=== PATIENT | male | born 1960 | race Caucasian/White ===

== ENCOUNTER 2018-08-10 15:31 | Emergency (ER) | payer MEDICAID ==
[~2018-08-10] VITALS: Ht 185.4 cm; Wt 99.8 kg
[2018-08-10 15:31] VITALS: BP_SYST 125
[2018-08-10] MEDS ORDERED: chlorproMAZINE HCL 50 MG/ 2 ML AMP IVP ONE (16:00)
[2018-08-10] MEDS ORDERED: DIPHENHYDRAMINE INJ 50 MG/ML VIAL IVP ONE (16:00)
[2018-08-10] MEDS ORDERED: NACL 0.9% 1,000 ML IV ONE (16:00)
[2018-08-10 16:12] LABS: BILIRUBIN,URINE NEGATIVE (NEGATIVE); BLOOD, URINE 1+ (NEGATIVE); CLARITY/URINE CLEAR (CLEAR); GLUCOSE,URINE NEGATIVE (NEGATIVE); KETONES,URINE NEGATIVE (NEGATIVE); LEUKOCYTE ESTERASE ,URINE NEGATIVE (NEGATIVE); NITRITE, URINE NEGATIVE (NEGATIVE); PROTEIN URINE 2+ (NEGATIVE)
[2018-08-10 16:19] LABS: BASOPHILS % (AUTO) 0.3 % (0.0-2.0); EOSINOPHILS % (AUTO) 0.2 % (0.0-4.0); HEMATOCRIT 41.8 % (36-54); HEMOGLOBIN 14.3 g/dL (14.0-18.0); LYMPHOCYTES # (AUTO) 1.2 K/uL (1.0-5.5); LYMPHOCYTES % (AUTO) 12.6 % (20.5-51.5); MEAN CORPUSCULAR HEMOGLOBIN 30 pg (27-31); MEAN CORPUSCULAR HGB CONC 34 % (32-36); MEAN CORPUSCULAR VOLUME 88 fL (79.0-98.0); MONOCYTES # (AUTO) 0.7 K/uL (0.0-1.0); NEUTROPHILS # (AUTO) 7.4 K/uL (1.8-7.7); NEUTROPHILS % (AUTO) 79.9 % (40.0-70.0); PLATELET COUNT (AUTO) 261 K/uL (130-430); RED BLOOD CELL COUNT(AUTO) 4.78 MIL/uL (4.2-6.2); RED CELL DISTRIBUTION WIDTH 12.7 % (9.0-15.0); WHITE BLOOD COUNT (AUTO) 9.3 K/uL (4.8-10.8)
[2018-08-10 16:24] LABS: CALCIUM 9.1 mg/dL (8.4-11.0); CREATININE 1.06 mg/dL (0.55-1.30)
[2018-08-10 16:24] LABS: COLOR,URINE AMBER (YELLOW); UROBILINOGEN,URINE >=8 (0.2-1.0)
[2018-08-10 16:25] LABS: BACTERIA,URINE FEW /HPF (None Seen); MUCUS,URINE None Seen /LPF (None Seen); RBC,URINE 0-3 /HPF (0-3); WBC,URINE NONE SEEN /HPF (0-3)
[2018-08-10 16:29] LABS: TOTAL BILIRUBIN 0.6 mg/dL (0.0-1.0)
[2018-08-10] MEDS ORDERED: AZITHROMYCIN 250 MG TABLET PO ONE (18:00)
[2018-08-10 18:14] VITALS: BP_SYST 132
== END 2018-08-10 18:18 | disposition home or self-care (01) ==
LOC: SED 15:31
DX: J18.9 Pneumonia, unspecified organism (principal); E87.1 Hypo-osmolality and hyponatremia; R74.0 Nonspecific elevation of levels of transaminase and lactic acid dehydrogenase [LDH]; R03.0 Elevated blood-pressure reading, without diagnosis of hypertension
CPT/HCPCS: 36415; 71045; 74176; 80053; 81000; 83690; 84484; 85025; 86710; 93005; 96361; 96374; 96375; 99284; J1200; J3230; J7030; Q0144

== ENCOUNTER 2019-04-14 22:10 | Emergency (ER) | payer MEDICAID ==
[~2019-04-14] VITALS: Ht 182.9 cm; Wt 102.1 kg
--- NOTE | 2019-04-14 22:30 | NUR ---
Patient to ER bed 03 to gown for evaluation. Side rails up. Report given to MILAGRO John.
--- NOTE | 2019-04-14 22:31 | NUR ---
ER MD Decker at bedside for medical evaluation.
--- NOTE | 2019-04-14 22:32 | NUR ---
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 Patient reports pain when coughing and with breathing. Pain 9/10. Denies any abdminal pain, shortness of breath, nausea, vomiting or diarrhea. No other complaints/injuries per patient or as noted. Will continue to monitor.
[2019-04-14 22:36] VITALS: BP_SYST 140
--- NOTE | 2019-04-14 22:45 | NUR ---
# 18 gauge angiocath placed to rac. Use of asceptic technique. Opsite placed over site. Blood return noted. Blood for lab drawn from site. Flushed with 10 cc of normal saline. No evidence of infiltration noted. Patient tolerated well.
[2019-04-14 22:59] LABS: BILIRUBIN,URINE NEGATIVE (NEGATIVE); BLOOD, URINE NEGATIVE (NEGATIVE); CLARITY/URINE CLEAR (CLEAR); COLOR,URINE YELLOW (YELLOW); GLUCOSE,URINE NEGATIVE (NEGATIVE); KETONES,URINE NEGATIVE (NEGATIVE); LEUKOCYTE ESTERASE ,URINE NEGATIVE (NEGATIVE); NITRITE, URINE NEGATIVE (NEGATIVE); PH,URINE 6.5 (5.0-8.0); PROTEIN URINE NEGATIVE (NEGATIVE); UROBILINOGEN,URINE 0.2 (0.2-1.0)
[2019-04-14] MEDS: NACL 0.9% 1,000 ML IV ONE (23:08)
[2019-04-14] MEDS: MORPHINE 4 MG/ML INJ. SYRINGE IVP ONE (23:08)
[2019-04-14 23:12] LABS: BASOPHILS # (AUTO) 0.1 K/uL (0.0-0.2); BASOPHILS % (AUTO) 0.8 % (0.0-2.0); EOSINOPHILS # (AUTO) 0.3 K/uL (0.0-0.4); EOSINOPHILS % (AUTO) 4.5 % (0.0-4.0); HEMATOCRIT 38.7 % (36-54); HEMOGLOBIN 13.9 g/dL (14.0-18.0); LYMPHOCYTES # (AUTO) 2.1 K/uL (1.0-5.5); LYMPHOCYTES % (AUTO) 30.4 % (20.5-51.5); MEAN CORPUSCULAR HEMOGLOBIN 32 pg (27-31); MEAN CORPUSCULAR HGB CONC 36 % (32-36); MEAN CORPUSCULAR VOLUME 89 fL (79.0-98.0); MONOCYTES # (AUTO) 0.5 K/uL (0.0-1.0); MONOCYTES % (AUTO) 7.2 % (1.7-9.3); NEUTROPHILS # (AUTO) 3.9 K/uL (1.8-7.7); NEUTROPHILS % (AUTO) 57.1 % (40.0-70.0); PLATELET COUNT (AUTO) 247 K/uL (130-430); RED BLOOD CELL COUNT(AUTO) 4.35 MIL/uL (4.2-6.2); RED CELL DISTRIBUTION WIDTH 13.8 % (9.0-15.0); WHITE BLOOD COUNT (AUTO) 6.9 K/uL (4.8-10.8)
[2019-04-14 23:34] LABS: INR 0.9 (0.80-1.20)
[2019-04-15 00:08] LABS: CALCIUM 8.1 mg/dL (8.4-11.0); CREATININE 1.05 mg/dL (0.55-1.30)
[2019-04-15 00:12] LABS: ALBUMIN 3.6 g/dL (3.4-4.8); TOTAL BILIRUBIN 0.3 mg/dL (0.0-1.0)
[2019-04-15 00:53] VITALS: BP_SYST 128
--- NOTE | 2019-04-15 00:53 | NUR ---
Patient given written and verbal discharge instructions and verbalizes understanding. ER MD Decker discussed with patient the results and treatment provided. Patient in stable condition. ID arm band removed. IV catheter removed intact and dressing applied, no active bleeding. Rx of tylenol no. 3 and zofran given. Patient educated on pain management and to follow up with PMD. Pain Scale 0/10 Opportunity for questions provided and answered. Medication side effect fact sheet provided.
== END 2019-04-15 00:53 | disposition home or self-care (01) ==
LOC: SED 22:10
DX: S22.31XA Fracture of one rib, right side, initial encounter for closed fracture (principal); S20.211A Contusion of right front wall of thorax, initial encounter; R03.0 Elevated blood-pressure reading, without diagnosis of hypertension; W22.8XXA Striking against or struck by other objects, initial encounter; Y93.89 Activity, other specified; Y92.69 Other specified industrial and construction area as the place of occurrence of the external cause; Y99.8 Other external cause status
CPT/HCPCS: 36415; 71250; 80053; 81003; 82150; 82550; 83605; 83690; 83880; 84484; 85025; 85610; 85730; 87040; 93005; 99284; J2270; J7030

== ENCOUNTER 2019-04-21 22:45 | Emergency (ER) | payer MEDICAID ==
[~2019-04-21] VITALS: Ht 182.9 cm; Wt 102.1 kg
[2019-04-21 22:56] VITALS: BP_SYST 148
--- NOTE | 2019-04-21 23:01 | NUR ---
Patient triaged and placed in waiting room. VSS and patient appears in no acute distress at this time. Accompanied by self, awaiting available bed, and MD notified of need for MSE.
--- NOTE | 2019-04-21 23:32 | NUR ---
Patient to ER bed 2 to gown for evaluation. Side rails up.
[2019-04-21 23:38] LABS: BILIRUBIN,URINE NEGATIVE (NEGATIVE); BLOOD, URINE NEGATIVE (NEGATIVE); CLARITY/URINE CLEAR (CLEAR); COLOR,URINE YELLOW (YELLOW); GLUCOSE,URINE NEGATIVE (NEGATIVE); KETONES,URINE NEGATIVE (NEGATIVE); LEUKOCYTE ESTERASE ,URINE NEGATIVE (NEGATIVE); NITRITE, URINE NEGATIVE (NEGATIVE); PROTEIN URINE TRACE (NEGATIVE)
--- NOTE | 2019-04-21 23:40 | NUR ---
Pt complains of RUQ pain for the past 4 days. Pt states he has certain spot that has a burning sensation especially when he stretches or when he coughs. Per pt, he fractured his ribs a week ago and to help stabilize rib he uses a brace. Per pt, when brace is on, abdomen feels better, but when brace comes off, that's when he starts to feel pain to abdomen. Pt felt nauseous but denies vomiting. No other injuries/complaints per patient or noted.
[2019-04-21 23:41] LABS: RBC,URINE 0-3 /HPF (0-3); WBC,URINE 0-3 /HPF (0-3)
[2019-04-21 23:42] LABS: BACTERIA,URINE RARE /HPF (None Seen)
--- NOTE | 2019-04-21 23:46 | NUR ---
ER Dr. Navarrete at bedside examining patient.
[2019-04-22] MEDS ORDERED: CYCLOBENZAPRINE HCL 10 MG TABLET (FLEXERIL) PO ONE
[2019-04-22] MEDS ORDERED: KETOROLAC TROMETHAMINE 60 MG/2 ML VIAL IM ONE
[2019-04-22 00:01] LABS: BASOPHILS # (AUTO) 0.1 K/uL (0.0-0.2); BASOPHILS % (AUTO) 1.6 % (0.0-2.0); EOSINOPHILS # (AUTO) 0.4 K/uL (0.0-0.4); EOSINOPHILS % (AUTO) 5.9 % (0.0-4.0); HEMATOCRIT 37.2 % (36-54); HEMOGLOBIN 12.9 g/dL (14.0-18.0); LYMPHOCYTES # (AUTO) 2.4 K/uL (1.0-5.5); LYMPHOCYTES % (AUTO) 37.9 % (20.5-51.5); MEAN CORPUSCULAR HEMOGLOBIN 31 pg (27-31); MEAN CORPUSCULAR HGB CONC 35 % (32-36); MEAN CORPUSCULAR VOLUME 88 fL (79.0-98.0); MONOCYTES # (AUTO) 0.6 K/uL (0.0-1.0); MONOCYTES % (AUTO) 9.2 % (1.7-9.3); NEUTROPHILS # (AUTO) 2.9 K/uL (1.8-7.7); NEUTROPHILS % (AUTO) 45.4 % (40.0-70.0); PLATELET COUNT (AUTO) 266 K/uL (130-430); RED BLOOD CELL COUNT(AUTO) 4.21 MIL/uL (4.2-6.2); RED CELL DISTRIBUTION WIDTH 13.6 % (9.0-15.0); WHITE BLOOD COUNT (AUTO) 6.4 K/uL (4.8-10.8)
[2019-04-22 00:30] LABS: CALCIUM 8.4 mg/dL (8.4-11.0); CREATININE 1.05 mg/dL (0.55-1.30); POTASSIUM 3.8 mmol/L (3.5-5.1)
[2019-04-22 00:37] LABS: ALBUMIN 3.5 g/dL (3.4-4.8); TOTAL BILIRUBIN 0.3 mg/dL (0.0-1.0)
[2019-04-22 02:08] VITALS: BP_SYST 136
--- NOTE | 2019-04-22 02:08 | NUR ---
Patient given written and verbal discharge instructions and verbalizes understanding. ER MD discussed with patient the results and treatment provided. Patient in stable condition. ID arm band removed. Rx of Ibuprofen and Flexeril given. Patient educated on pain management and to follow up with PMD. Pain Scale 0. Opportunity for questions provided and answered. Medication side effect fact sheet provided.
== END 2019-04-22 02:08 | disposition home or self-care (01) ==
LOC: SED 22:45
DX: S30.1XXA Contusion of abdominal wall, initial encounter (principal); X58.XXXA Exposure to other specified factors, initial encounter; Y93.89 Activity, other specified; Y92.89 Other specified places as the place of occurrence of the external cause; Y99.8 Other external cause status
CPT/HCPCS: 36415; 80053; 81000; 83690; 85025; 96372; 99283; J1885

== ENCOUNTER 2020-04-21 11:18 | Emergency (ER) | payer MEDICAID ==
[~2020-04-21] VITALS: Ht 185.4 cm; Wt 99.8 kg
[2020-04-21 11:24] VITALS: BP_SYST 139
[2020-04-21 12:05] VITALS: BP_SYST 139
== END 2020-04-21 12:04 | disposition home or self-care (01) ==
LOC: SED 11:18
DX: M77.9 Enthesopathy, unspecified (principal)
CPT/HCPCS: 99283

== ENCOUNTER 2021-03-04 11:07 | Emergency (ER) | payer MEDICAID ==
[~2021-03-04] VITALS: Ht 185.4 cm; Wt 102.1 kg
[2021-03-04 11:20] VITALS: BP_SYST 152
--- NOTE | 2021-03-04 11:23 | NUR ---
Patient to ER bed 6 to gown for evaluation. Side rails up. Report given to Jacobo HUMPHREY.
[2021-03-04] MEDS ORDERED: HYDROcodone/ACETAMIN 10-325 MG TAB PO ONE (11:30)
--- NOTE | 2021-03-04 11:30 | NUR ---
Patient came to the ER with complaint of knee pain.
--- NOTE | 2021-03-04 11:31 | NUR ---
Patient came to the ER with complaint of bilateral knee pain. Patient advised that he has arthritis and when putting on socks yesterday and he felt something pop and now his right knee is in more pain. Patient typically lives with discomfort with both knees, but per patient his right knee is 9/10 pain. Patient knee is swollen and tender to touch. Patient is unable to extend or bend knee at joint.
--- NOTE | 2021-03-04 11:35 | NUR ---
ER Dr. Partida at bedside examining patient.
--- NOTE | 2021-03-04 11:40 | NUR ---
Radiology at bedside.
[2021-03-04 11:56] LABS: BASOPHILS % (AUTO) 0.9 % (0.0-2.0); EOSINOPHILS # (AUTO) 0.3 K/uL (0.0-0.4); EOSINOPHILS % (AUTO) 6.2 % (0.0-4.0); HEMATOCRIT 41.5 % (36-54); HEMOGLOBIN 13.6 g/dL (14.0-18.0); LYMPHOCYTES # (AUTO) 1.7 K/uL (1.0-5.5); LYMPHOCYTES % (AUTO) 30.2 % (20.5-51.5); MEAN CORPUSCULAR HEMOGLOBIN 29 pg (27-31); MEAN CORPUSCULAR HGB CONC 33 % (32-36); MEAN CORPUSCULAR VOLUME 89 fL (79.0-98.0); MONOCYTES # (AUTO) 0.6 K/uL (0.0-1.0); MONOCYTES % (AUTO) 9.9 % (1.7-9.3); NEUTROPHILS % (AUTO) 52.8 % (40.0-70.0); PLATELET COUNT (AUTO) 270 K/uL (130-430); RED BLOOD CELL COUNT(AUTO) 4.69 MIL/uL (4.2-6.2); RED CELL DISTRIBUTION WIDTH 13.7 % (9.0-15.0); WHITE BLOOD COUNT (AUTO) 5.6 K/uL (4.8-10.8)
[2021-03-04 12:19] LABS: INR 0.9 (0.80-1.20); PROTHROMBIN TIME 9.3 SECS (9.5-12.5)
--- NOTE | 2021-03-04 12:28 | NUR ---
Ultrasound at bedside to examine right knee for fluid.
[2021-03-04 12:29] LABS: ANION GAP 9 (5-15); CALCIUM 8.7 mg/dL (8.4-11.0); CHLORIDE 108 mmol/L (98-107); CREATININE 0.93 mg/dL (0.55-1.30); GFR AFRICAN AMERICAN 107 mL/min (>90); GLUCOSE 111 mg/dL (70-99); POTASSIUM 4.5 mmol/L (3.5-5.1); SODIUM SERUM 142 mmol/L (136-145); UREA NITROGEN, BLOOD 11 mg/dL (8-21)
[2021-03-04 12:38] LABS: ASPARTATE AMINOTRANSFERASE 14 U/L (10-37); TOTAL BILIRUBIN 0.4 mg/dL (0.0-1.0)
[2021-03-04 12:39] LABS: ALANINE AMINOTRANSFERASE 25 U/L (12-78); ALBUMIN 3.5 g/dL (3.4-4.8); URIC ACID 4.8 mg/dL (2.4-7.0)
[2021-03-04] MEDS ORDERED: LIDOCAINE 1%, 20 ML MDV 20 ML ONE (12:39)
[2021-03-04 12:44] LABS: C-REACTIVE PROTEIN QUANT < 0.2 mg/dL (0-0.5)
[2021-03-04 12:48] LABS: ERYTHROCYTE SEDIMENTATION RATE 9 MM/HR (0-15)
[2021-03-04] MEDS ORDERED: BACITRACIN 1 GM OINT TP ONE (12:57)
--- NOTE | 2021-03-04 13:05 | NUR ---
YARED WRAP TO RT KNEE TOLERATED WELL
[2021-03-04] MEDS ORDERED: IBUP-1971 PO (13:19)
[2021-03-04] MEDS ORDERED: HYDR-3917 PO (13:19)
[2021-03-04 13:30] VITALS: BP_SYST 121
--- NOTE | 2021-03-04 13:30 | NUR ---
Patient given written and verbal discharge instructions and verbalizes understanding. ER MD discussed with patient the results and treatment provided. Patient in stable condition. ID arm band removed. Rx of norco given. Patient educated on pain management and to follow up with PMD. Pain Scale 4/10 Opportunity for questions provided and answered. Medication side effect fact sheet provided.
[2021-03-04 14:01] LABS: APPEARANCE,SPUN,BODY FLUID CLEAR (CLEAR); BF APPEARANCE UNSPUN HAZY (CLEAR); BODY FLUID COLOR RED (LT YELLOW); BODY FLUID SOURCE/ TYPE JOINT; BODY FLUID TOTAL VOLUME 50 mL; MONOCYTES,BODY FLUID 4 %; NEUTROPHIL, BODY FLUID 96 %; RBC, BODY FLUID 3028 /uL; SOURCE/TYPE ,BODY FLUID SYNOVIAL; WBC, BODY FLUID 1370 /uL
[2021-03-04 14:23] LABS: BODY FLUID CRYSTALS NO CRYSTALS SEEN (None Seen)
[2021-03-04 18:48] LABS: BODY FLUID GLUCOSE 107 mg/dL; BODY FLUID TOTAL PROTEIN 2.8 g/dL
== END 2021-03-04 13:30 | disposition home or self-care (01) ==
LOC: SED 11:07
DX: M25.461 Effusion, right knee (principal)
CPT/HCPCS: 20611; 36415; 73560; 76882; 80053; 82947; 84157; 84550; 85025; 85610; 85651; 85730; 86140; 87070; 89051 ×2; 89060; 99285; J2001

== ENCOUNTER 2021-03-05 19:41 | Emergency (ER) | payer MEDICAID ==
[~2021-03-05] VITALS: Ht 177.8 cm; Wt 94.3 kg
[~2021-03-05 19:41] MED LIST: HYDR-3917 PO; IBUP-1971 PO
[2021-03-05 19:56] VITALS: BP_SYST 142
--- NOTE | 2021-03-05 19:56 | NUR ---
Patient to ER bed 7 to gown for evaluation. Side rails up
--- NOTE | 2021-03-05 20:03 | NUR ---
Dr. Morin bedside for pt eval
--- NOTE | 2021-03-05 20:05 | NUR ---
Pt came into ER with complaint of right knee pain 04/04. Pt was in the ER yesterday for the same pain and the DrEdi drained the knee. Pt reports the knee filled up with fluid again and is causing him pain. Pt resting in [facility] no distress noted.
--- NOTE | 2021-03-05 20:38 | NUR ---
Dr. Morin at bedside speaking with pt.
--- NOTE | 2021-03-05 20:46 | NUR ---
Applied right knee imobilizer to pt. Pt tolerated well.
[2021-03-05 20:57] VITALS: BP_SYST 142
--- NOTE | 2021-03-05 20:58 | NUR ---
Patient given written and verbal discharge instructions and verbalizes understanding. ER MD discussed with patient the results and treatment provided. Patient in stable condition. ID arm band removed. Patient educated on pain management and to follow up with PMD. Pain Scale 2/10. Opportunity for questions provided and answered. Medication side effect fact sheet provided.
== END 2021-03-05 20:58 | disposition home or self-care (01) ==
LOC: SED 19:41
DX: M25.461 Effusion, right knee (principal); M17.0 Bilateral primary osteoarthritis of knee; Z79.899 Other long term (current) drug therapy
CPT/HCPCS: 99283

== ENCOUNTER 2022-06-04 13:10 | Emergency (ER) | payer MEDICAID ==
[~2022-06-04] VITALS: Ht 185.4 cm; Wt 108.9 kg
[2022-06-04 13:53] VITALS: BP_SYST 146
--- NOTE | 2022-06-04 16:16 | NUR ---
Patient left without being seen.
== END 2022-06-04 16:16 | disposition left against medical advice (07) ==
LOC: SED 13:10
DX: R21 Rash and other nonspecific skin eruption (principal); Z53.21 Procedure and treatment not carried out due to patient leaving prior to being seen by health care provider

== ENCOUNTER 2023-11-13 12:11 | Emergency (ER) | payer MEDICAID ==
[~2023-11-13] VITALS: Ht 177.8 cm; Wt 108.9 kg
[2023-11-13 12:11] VITALS: BP_SYST 147; PULSE 89; RESP 17; TEMP 98.2; O2SAT 99
[2023-11-13 14:45] VITALS: BP_SYST 142; PULSE 84; RESP 17; TEMP 98.2; O2SAT 99
== END 2023-11-13 14:45 | disposition home or self-care (01) ==
LOC: SED 12:11
DX: S50.11XA Contusion of right forearm, initial encounter (principal); Z79.899 Other long term (current) drug therapy; W22.09XA Striking against other stationary object, initial encounter; Y93.89 Activity, other specified; Y92.89 Other specified places as the place of occurrence of the external cause; Y99.8 Other external cause status
CPT/HCPCS: 73090; 99283